=== PATIENT | female | born 1950 | race Caucasian/White ===

== ENCOUNTER 2019-06-07 07:38 | Emergency (ER) | payer MEDICARE, BC ==
[~2019-06-07] VITALS: Ht 154.9 cm; Wt 86.4 kg
[2019-06-07 07:47] VITALS: TEMP 97.6
[2019-06-07 08:33] LABS: BASO # 0.1 (0.0-0.2); BASO % 1.3 % (0.0-2.0); EOS # 0.1 (0.0-0.7); EOS % 1.1 % (0-4.0); GRAN # 3.6 (1.4-6.5); GRAN % 57.4 % (42.2-75.2); HEMOGLOBIN 16.3 g/dl (12.5-16.0); LYMPH % 31.4 % (20.0-51.0); MEAN CELL VOLUME 89 fl (80.0-100.0); MEAN CORPUSCULAR HEMOGLOBIN 30 pg (27.0-31.0); MEAN CORPUSCULAR HGB CONC 33 g/dl (33.0-37.0); MEAN PLATELET VOLUME 9.6 fl (7.4-10.4); MONO # 0.5 (0.1-0.6); MONO % 8.6 % (1.7-9.3); PLATELET COUNT 250 K/mm3 (130-400); RED BLOOD COUNT 5.53 M/mm3 (4.10-5.30); REDCELL DISTRIBUTION WIDTH-CV 12.8 % (11.5-14.5)
[2019-06-07] MEDS ORDERED: LOPRESSOR 225 MG/TAB PO (08:33)
[2019-06-07] MEDS ORDERED: AMITRIPTYLINE H25 M1 PO (08:33)
[2019-06-07 08:45] LABS: ALBUMIN 4.3 gm/dL (3.5-5.0); BILIRUBIN,TOTAL 0.8 mg/dL (0.0-1.0); CALCIUM 9.4 mg/dL (8.4-10.2); CREATININE, serum 0.57 (0.52-1.25); POTASSIUM 3.6 mmol/L (3.4-5.0); TOTAL PROTEIN 7.6 gm/dL (6.4-8.2)
[2019-06-07] MEDS ORDERED: XANAX .25M0.25 MG/TA PO (09:39)
[2019-06-07] MEDS ORDERED: HCTZ12.5TAB PO (09:39)
[2019-06-07 11:29] VITALS: BP 157/87; PULSE 74
== END 2019-06-07 11:35 | disposition home or self-care (01) ==
LOC: COL.ER 07:38
PROVIDERS: Family Medicine
DX: I10 Essential (primary) hypertension (principal)
CPT/HCPCS: J2060